=== PATIENT | male | born 1970 | race African-American/Black ===

== ENCOUNTER 2025-07-03 00:52 | Emergency (ER) | payer SELFPAY ==
--- NOTE | ~2025-07-03 | XR_ITS ---
CLINICAL HISTORY: injury 3 view right shoulder Comparison: None provided Findings: No fractures or dislocations. Mild degenerative changes of the glenohumeral and acromioclavicular joints. No erosions. No radiopaque foreign body. IMPRESSION: 1. No acute fracture This document has been electronically signed by: Jennifer Yost MD on 07/03/2025 01:44:28
[2025-07-03 00:55] VITALS: BP 123/79; PULSE 102; RESP 20; TEMP 36.1; O2SAT 97; BMI 24.0
--- NOTE | 2025-07-03 03:17 | ED.EXTPRO ---
HPI - Extremity Problem General Chief complaint: Extremity Injury, Upper Stated complaint: shoulder pain/inj Time Seen by Provider: 07/03/25 01:19 Source: patient Limitations: no limitations History of Present Illness ED Provider: Chasidy Villanueva PA-C HPI Narrative: 55-year-old male presents with right shoulder pain. Patient states he performs a great deal of physical activity on a regular basis at work, he has since developed pain and reduced range of motion of the right shoulder. Denies redness, swelling, warmth or fever. No actual trauma. Related Data Previous Rx's ?Medication ?Instructions ?Recorded ketorolac 10 mg tablet 10 mg PO Q6H PRN pain #20 tabs 07/03/25 prednisone 20 mg tablet 40 mg (2 x 20 mg) PO DAILY #8 tabs 07/03/25 Allergies Allergy/AdvReac Type Severity Reaction Status Date / Time aspirin AdvReac Vomiting Verified 07/03/25 00:58 Review of Systems Review of Systems: Yes all other systems are reviewed and are negative Constitutional: Constitutional: Denies fatigue and Denies fever(s) Cardiovascular: Cardiovascular: Denies chest pain and Denies dyspnea Respiratory: Respiratory: Denies dyspnea Gastrointestinal: Gastrointestinal: Denies abdominal pain Musculoskeletal: Musculoskeletal: Reports arthralgias and Denies joint swelling Integumentary/Breasts: Skin/Breast: Denies erythema and Denies skin swelling Endocrine: Endocrine: Denies fatigue PMFSH Past Medical History Attestation statement: The following information was validated with the patient. Social History Social History Smoked in Last 30 Days: No Use of substances other than those prescribed or required for medical reasons: No Advance Directives: No Advance Directives Information Provided: Yes Do you have a plan to hurt others: No Plan Physical Exam Vital Signs: Vital Signs: Last Vital Signs Temp 97 F 07/03/25 03:39 Pulse 102 H 07/03/25 03:39 Resp 20 07/03/25 03:39 BP 123/79 07/03/25 03:39 Pulse Ox 97 07/03/25 03:39 O2 Del Method Room Air 07/03/25 03:39 BMI result Body Mass Index 24.0 Const: Other: Alert well-appearing Orientation/consciousness: patient oriented x3 Resp: Effort & Inspection: normal respiratory effort Cardio: Other: Normal peripheral perfusion Skin: Other: Warm dry no rash Neuro: General: patient oriented x3, gait normal, no focal motor deficits and CN's II-XI intact bilaterally Extrem: Other: Able to fully flex and extend from the right elbow, no swelling redness or warmth of the right shoulder joint, limited range of motion in lateral raise secondary to pain, Psych: Other: Cooperative Medications Administered Discontinued Medications Generic Name Dose Route Start Last Admin Trade Name Renato PRN Reason Stop Dose Admin Ketorolac Tromethamine 15 mg 07/03/25 03:25 07/03/25 03:32 Ketorolac Tromethamine 15 Mg/Ml Vial IM 07/03/25 03:26 15 mg ONCE ONE Administration Prednisone 40 mg 07/03/25 03:25 07/03/25 03:32 Prednisone 20 Mg Tablet PO 07/03/25 03:26 40 mg ONCE ONE Administration Medical Decision Making Medical Decision Making [facility] Narrative: 55-year-old male presents with right shoulder pain. Patient states he performs a great deal of physical activity on a regular basis at work, he has since developed pain and reduced range of motion of the right shoulder. Denies redness, swelling, warmth or fever. No actual trauma. No known chronic issues History: Per patient I have considered the following differential diagnoses: Fracture, dislocation, sprain, arthritis , tendonitis Plan: X-ray ordered from triage, the patient has a arthritis. We will send with a contact for the orthopedic service, he would benefit from a joint injection, I have independently reviewed the following tests: X-ray right shoulder:Findings: No fractures or dislocations. Mild degenerative changes of the glenohumeral and acromioclavicular joints. No erosions. No radiopaque foreign body. IMPRESSION: 1. No acute fracture Differential Diagnosis Differential Diagnoses: The differential diagnosis associated with the presentation includes See [facility] Admission/Observation Consideration of admission/observation: Escalation of care including admission/observation considered Not applicable Radiology Impression Discussion of test interpretation with radiology: I have reviewed the radiologist's reading. Discharge Plan Discharge Clinical Impression: Arthritis of shoulder region, right Patient Disposition: Home, Self-Care Instructions: Osteoarthritis (ED) Additional Instructions: You were found to have arthritis of the shoulder. See home care instructions. Use the ketorolac as directed, this is an anti-inflammatory take it with food. Use the steroid as directed take it with food. I am providing you with a contact for the orthopedic service. Call tomorrow to schedule an appointment. Prescriptions: New ketorolac 10 mg tablet 10 mg PO Q6H PRN (Reason: pain) Qty: 20 0RF Rx Instructions: maximum total duration of 5 days from all oral, intranasal, or parenteral formulations, patient received a intramuscular dose of Toradol here in the emergency room prednisone 20 mg tablet 40 mg PO DAILY Qty: 8 0RF Referrals: Atif Pringle MD [Physician, Orthopedics] Referral Note: Right shoulder arthritis, limited range of motion Interventions: ED Discharge Assessment Last Done: 07/03/25 03:39 Discharge Date/Time: 07/03/25 03:39 Print Language: [place]
--- NOTE | 2025-07-03 03:38 | PC.NURSE ---
medicated per mar, reviewed discharge instructions with pt. pt verbalized understanding, no sign of distress upon discharge.
[2025-07-03 03:39] VITALS: BP 123/79; PULSE 102; RESP 20; TEMP 36.1; O2SAT 97
== END 2025-07-03 03:39 | disposition home or self-care (01) ==
PROVIDERS: Emergency Provider Emergency Medicine
DX: M19.011 Primary osteoarthritis, right shoulder (principal)
CPT/HCPCS: 73030; 96372; 99284; J1885

== ENCOUNTER → 2025-07-03 01:25 | Outpatient (BNV) | payer SELFPAY | PROVIDERS: Emergency Provider Emergency Medicine; Visit Provider Student in an Organized Health Care Education/Training Program | DX: Z04.3 Encounter for examination and observation following other accident (principal) | CPT/HCPCS: 73030 ==